=== PATIENT | male | born 1985 | race Caucasian/White ===

== ENCOUNTER 2017-09-23 20:26 | Emergency (ER) | payer OTHER ==
[~2017-09-23] VITALS: Ht 182.9 cm; Wt 90.7 kg
[2017-09-23 22:14] VITALS: BP 143/97
[2017-09-23] MEDS ORDERED: LIDOCAINE /MPF 1% VIAL 5 ML VIAL ONE ×2 (22:24→22:28)
[2017-09-23] MEDS ORDERED: LIDOCAINE 1% INJ 50 ML MDV IJ ONE (22:30)
[2017-09-23] MEDS ORDERED: CEPHALEXIN MONOHYDRATE 500 MG CAPSULE PO ONE ×2 (23:00→23:10)
== END 2017-09-23 23:33 | disposition home or self-care (01) ==
LOC: ER 20:28
DX: S61.217A Laceration without foreign body of left little finger without damage to nail, initial encounter (principal); W26.0XXA Contact with knife, initial encounter; Y93.89 Activity, other specified; Y92.89 Other specified places as the place of occurrence of the external cause; Y99.8 Other external cause status
CPT/HCPCS: 12002; 99283; A4606; A6403; J3490 ×2; Z7610

== ENCOUNTER 2017-10-03 09:58 | Emergency (ER) | payer OTHER ==
[~2017-10-03] VITALS: Ht 165.1 cm; Wt 95.3 kg
[2017-10-03 09:58] VITALS: BP 131/79
== END 2017-10-03 10:59 | disposition home or self-care (01) ==
LOC: ER 09:59
DX: S61.217D Laceration without foreign body of left little finger without damage to nail, subsequent encounter (principal); L08.9 Local infection of the skin and subcutaneous tissue, unspecified; E11.9 Type 2 diabetes mellitus without complications; Z60.2 Problems related to living alone; W26.0XXD Contact with knife, subsequent encounter
CPT/HCPCS: A4606; Z7610